=== PATIENT | male | born 2000 | race Caucasian/White ===

== ENCOUNTER 2022-03-08 13:25 | Emergency (ER) | payer SELFPAY ==
[2022-03-08] VITALS (10 sets, daily range): BP systolic 114–135; BP diastolic 75–88
[~2022-03-08] VITALS: Ht 182.9 cm; Wt 59.1 kg
[2022-03-08] MEDS ORDERED: CEPHALEXIN500 MG PO (15:38)
== END 2022-03-08 16:09 | disposition home or self-care (01) | DRG 605 ==
LOC: ED 13:25
DX: S81.012A Laceration without foreign body, left knee, initial encounter (principal); W29.3XXA Contact with powered garden and outdoor hand tools and machinery, initial encounter